=== PATIENT | male | born 1990 | race Caucasian/White ===

== ENCOUNTER 2018-11-09 11:14 | Emergency (ER) | payer BC, SELFPAY ==
[2018-11-09] MEDS ORDERED: HYDROcodone/Acetaminophen 10/325 mg Tablet ONE (12:00)
[2018-11-09] MEDS ORDERED: Clindamycin 150 MG CAP ONE (12:00)
== END 2018-11-09 12:30 | disposition home or self-care (01) ==
LOC: MADERS 11:14
DX: K04.7 Periapical abscess without sinus (principal)
CPT/HCPCS: 87070; 87077; 87186; 87205; 99283

== ENCOUNTER 2022-12-25 17:48 | Emergency (ER) | payer OTHER, SELFPAY ==
[2022-12-25] MEDS ORDERED: ANTIVENIN,CROTALIDAE (ANAVIP) 1 EACH VIAL ONE ×2 (18:14→18:29)
[2022-12-25] MEDS ORDERED: Sodium Chloride 0.9% 500 ML BAG ONE (18:29)
[2022-12-25 18:30] LABS: #Basophils 0.1 thou/uL (0.0-0.2); #Lymphocytes 1.6 thou/uL (1.20-3.40); #Monocytes 0.4 thou/uL (0.11-0.59); #Neutrophils 4.1 thou/uL (1.40-6.50); %Basophils 1.5 % (0.0-1.0); %Eosinophils 0.6 % (0.0-10.0); %Lymphocytes 26.2 % (21.0-51.0); %Monocytes 6.7 % (0.0-10.0); Hemoglobin 14.3 g/dL (14.0-18.0); Mean Corpuscular HGB CONC 34.8 g/dL (32.0-36.0); Mean Corpuscular Hemoglobin 32.8 pg (27.0-31.0); Mean Corpuscular Volume 94.2 fl (78.0-98.0); Mean Platelet Volume 7.8 fL (7.4-10.4); Platelet Count 196 10x3/uL (130-400); RBC Distribution Width 11.5 % (11.5-14.5); Red Blood Cell (RBC) Count 4.36 mill/uL (4.70-6.10); White Blood Cell (WBC) Count 6.3 10x3/uL (4.8-10.8)
[2022-12-25 18:35] LABS: Bilirubin Negative (Negative); Blood, Urine Negative (Negative); Clarity Clear (Clear); Glucose, Urine (Dipstick) Negative (Negative); Ketone, Urine Negative (Negative); Leukocyte Negative (Negative); Nitrite Negative (Negative); Protein, Urine (Dipstick) Negative (Neg-Trace); Urobilinogen 0.2 mg/dL (Less than 2); pH, Urine 5.5 (5.0-9.0)
[2022-12-25 18:36] LABS: INR-International Normal Ratio 0.9; PTT 27.7 sec (22.9-36.1); Prothrombin Time 12.6 sec (12.0-14.7)
[2022-12-25 18:37] LABS: Specific Gravity, Urine 1.005 (1.002-1.036)
[2022-12-25 18:42] LABS: Bacteria/HPF Rare-Few HPF (None Seen); CAUTI Indications for Culture Urological Procedure; RBC/HPF 0-3 HPF (0-3); Squamous Epithelial None Seen HPF (0-3); WBC/HPF None Seen HPF (0-3)
[2022-12-25 18:43] LABS: Urine Culture Reflex Yes Yes
[2022-12-25 18:45] LABS: ALT (SGPT) 99 U/L (8-55); AST (SGOT) 99 U/L (5-34); Albumin 5.2 g/dL (3.5-5.0); Alkaline Phosphatase 67 U/L (40-110); Anion Gap 17 mmol/L (10-20); BUN (Urea Nitrogen) 10 mg/dL (8.9-20.6); Bilirubin, Total 0.8 mg/dL (0.2-1.2); Calc. Creatinine Clearance 0 mL/min (70-130); Calcium 9.9 mg/dL (7.8-10.44); Carbon Dioxide 25 mmol/L (22-29); Chloride 102 mmol/L (98-107); Estimated GFR 122; Globulin 3.1 g/dL (2.4-3.5); Glucose 94 mg/dL (70-105); Potassium 3.4 mmol/L (3.5-5.1); Protein, Total 8.3 g/dL (6.0-8.3); Sodium 141 mmol/L (136-145)
[2022-12-25 18:45] LABS: Cocaine Metabolite Screen Not Detected (NotDetected); Methamphetamine Not Detected (NotDetected); Opiate Screen Not Detected (NotDetected); Phencyclidine (PCP) Not Detected (NotDetected); THC/Cannabinoid Screen Not Detected (NotDetected)
[2022-12-25 18:46] LABS: Amphetamine Not Detected (NotDetected); Barbiturates Screen Not Detected (NotDetected); Benzodiazepine Screen Not Detected (NotDetected); Methadone Not Detected (NotDetected); Oxycodone Screen Not Detected (NotDetected); Tricyclic Screen Not Detected (NotDetected)
[2022-12-25] MEDS ORDERED: Potassium Chloride 20 MEQ TAB ONE (19:28)
== END 2022-12-25 20:47 | disposition short-term general hospital (02) ==
LOC: MADERS 17:48
DX: T63.061A Toxic effect of venom of other North and South American snake, accidental (unintentional), initial encounter (principal); M79.89 Other specified soft tissue disorders; F10.229 Alcohol dependence with intoxication, unspecified; F17.220 Nicotine dependence, chewing tobacco, uncomplicated; Y90.8 Blood alcohol level of 240 mg/100 ml or more
CPT/HCPCS: 80053; 80306; 80307; 81001; 83735; 85025; 85384; 85610; 85730; 87086; 96365; 96366; J0841; J7030

== ENCOUNTER 2023-03-18 13:46 | Emergency (ER) | payer BC, OTHER ==
[2023-03-18] MEDS ORDERED: HYDROcodone/Acetaminophen 10/325 mg Tablet ONE (14:17)
[2023-03-18] MEDS ORDERED: Ondansetron ODT 4 MG TAB ONE (14:17)
== END 2023-03-18 14:30 | disposition home or self-care (01) ==
LOC: MADERS 13:46
DX: K04.7 Periapical abscess without sinus (principal); F17.220 Nicotine dependence, chewing tobacco, uncomplicated
CPT/HCPCS: 99282; Q0162

== ENCOUNTER 2024-02-29 13:35 | Emergency (ER) | payer BC ==
[2024-02-29] MEDS ORDERED: Lorazepam 2 MG/ML VIAL ONE ×2 (14:13→15:36)
[2024-02-29] MEDS ORDERED: Thiamine HCl 200 MG/2 ML VIAL ONE (14:22)
[2024-02-29] MEDS ORDERED: Folic Acid 5 MG/ML MDV ONE (14:22)
[2024-02-29 14:27] LABS: #Basophils 0.1 thou/uL (0.0-0.2); #Lymphocytes 0.9 thou/uL (1.20-3.40); #Monocytes 0.7 thou/uL (0.11-0.59); #Neutrophils 3.9 thou/uL (1.40-6.50); %Basophils 1.3 % (0.0-1.0); %Eosinophils 0.8 % (0.0-10.0); %Lymphocytes 16.2 % (21.0-51.0); %Neutrophils 69.8 % (42.0-75.0); Hematocrit 40.7 % (42.0-52.0); Hemoglobin 13.4 g/dL (14.0-18.0); Mean Corpuscular HGB CONC 32.8 g/dL (32.0-36.0); Mean Corpuscular Hemoglobin 30.6 pg (27.0-31.0); Mean Corpuscular Volume 93.5 fl (78.0-98.0); Mean Platelet Volume 6.9 fL (7.4-10.4); Platelet Count 121 10x3/uL (130-400); RBC Distribution Width 12.1 % (11.5-14.5); Red Blood Cell (RBC) Count 4.36 mill/uL (4.70-6.10); White Blood Cell (WBC) Count 5.5 10x3/uL (4.8-10.8)
[2024-02-29] MEDS ORDERED: Multivit, Adult Inj 10 ML VIAL ONE (14:30)
[2024-02-29 14:34] LABS: Acetaminophen Less than 10 mcg/mL (10.0-30.0); Alcohol Less than 10.0 mg/dL (Less than 10); Lipase 24 U/L (8-78); Salicylate Less than 8.0 mg/dL (15.0-30.0)
[2024-02-29 14:36] LABS: ALT (SGPT) 109 U/L (8-55); AST (SGOT) 93 U/L (5-34); Albumin 5.1 g/dL (3.5-5.0); Alkaline Phosphatase 57 U/L (40-110); Anion Gap 17 mmol/L (10-20); BUN (Urea Nitrogen) 16 mg/dL (8.9-20.6); Bilirubin, Total 1.6 mg/dL (0.2-1.2); Calc. Creatinine Clearance 0 mL/min (70-130); Calcium 10.6 mg/dL (7.8-10.44); Carbon Dioxide 24 mmol/L (22-29); Chloride 95 mmol/L (98-107); Estimated GFR 113; Globulin 3.5 g/dL (2.4-3.5); Glucose 134 mg/dL (70-105); Potassium 3.1 mmol/L (3.5-5.1); Protein, Total 8.6 g/dL (6.0-8.3); Sodium 133 mmol/L (136-145)
[2024-02-29 14:42] LABS: Troponin I Less than 0.010 ng/mL (< 0.028)
[2024-02-29] MEDS ORDERED: Diazepam 10 MG/2 ML SYRINGE ONE (16:01)
== END 2024-02-29 18:02 | disposition short-term general hospital (02) ==
LOC: MADERS 13:35
DX: F10.239 Alcohol dependence with withdrawal, unspecified (principal); F17.220 Nicotine dependence, chewing tobacco, uncomplicated
CPT/HCPCS: 80053; 80307; 83690; 84484; 85025; 96365; 96366; 96375; 96376; J2060; J3360; J3411